=== PATIENT | male | born 1970 | race Caucasian/White ===

== ENCOUNTER → 2018-10-09 | Outpatient (CLI) | payer BC | LOC: COL.RAD 08:07 | DX: Z01.818 Encounter for other preprocedural examination (principal); N18.6 End stage renal disease; Q61.3 Polycystic kidney, unspecified; K80.20 Calculus of gallbladder without cholecystitis without obstruction ==

== ENCOUNTER → 2018-10-10 | Outpatient (CLI) | payer BC | LOC: COL.RAD 13:00 | DX: Z01.818 Encounter for other preprocedural examination (principal); N18.6 End stage renal disease; E11.22 Type 2 diabetes mellitus with diabetic chronic kidney disease; Z79.4 Long term (current) use of insulin ==

== ENCOUNTER → 2019-05-29 | Outpatient (CLI) | payer BC | LOC: COL.LAB 14:17 | DX: E11.9 Type 2 diabetes mellitus without complications (principal); Z79.4 Long term (current) use of insulin ==

== ENCOUNTER → 2019-07-17 | Outpatient (CLI) | payer BC | LOC: COL.LAB 11:54 | DX: Z01.84 Encounter for antibody response examination (principal) ==

== ENCOUNTER → 2021-07-07 | Outpatient (CLI) | payer BC ==
[2021-07-08 17:13] LABS: TB GOLD INTERPRETATION Negative (Negative)
== END ==
LOC: COL.LAB 13:16
DX: Z01.818 Encounter for other preprocedural examination (principal); N18.6 End stage renal disease